=== PATIENT | female | born 1975 | race Caucasian/White ===

== ENCOUNTER 2020-06-11 09:07 | Emergency (ER) | payer MEDICAID ==
[~2020-06-11] VITALS: Ht 157.5 cm; Wt 95.3 kg
[2020-06-11 09:07] VITALS: BP_SYST 153
[2020-06-11] MEDS ORDERED: MORPHINE 4 MG/ML INJ. SYRINGE IM ONE (09:45)
--- NOTE | 2020-06-11 10:30 | NUR ---
Patient to ER bed H1 to gown for evaluation. Side rails up.
--- NOTE | 2020-06-11 10:32 | NUR ---
Pt brought by self, A&Ox4, pt presents to ER with RUQ abd pain, N/V, pt afebrile, skin pink and warm, respirations even and unlabored, cap refill <3, VSS.
--- NOTE | 2020-06-11 10:40 | NUR ---
Dr Stoll evaluating patient at bedside
--- NOTE | 2020-06-11 10:50 | NUR ---
Pt off the unit to radiology
[2020-06-11] MEDS ORDERED: MORPHINE 4 MG/ML INJ. SYRINGE ONE (12:02)
[2020-06-11] MEDS ORDERED: ONDANSETRON HCL 4 MG/2 ML VIAL ONE (12:03)
[2020-06-11 12:05] LABS: BASOPHILS # (AUTO) 0.1 K/uL (0.0-0.2); BASOPHILS % (AUTO) 0.7 % (0.0-2.0); EOSINOPHILS % (AUTO) 0.2 % (0.0-4.0); HEMATOCRIT 40.4 % (36-48); LYMPHOCYTES # (AUTO) 1.6 K/uL (1.0-5.5); LYMPHOCYTES % (AUTO) 17.3 % (20.5-51.5); MEAN CORPUSCULAR HEMOGLOBIN 31 pg (27-31); MEAN CORPUSCULAR HGB CONC 35 % (32-36); MEAN CORPUSCULAR VOLUME 89 fL (79.0-98.0); MONOCYTES # (AUTO) 0.4 K/uL (0.0-1.0); MONOCYTES % (AUTO) 4.1 % (1.7-9.3); NEUTROPHILS # (AUTO) 7.3 K/uL (1.8-7.7); NEUTROPHILS % (AUTO) 77.7 % (40.0-70.0); PLATELET COUNT (AUTO) 270 K/uL (130-430); RED BLOOD CELL COUNT(AUTO) 4.55 MIL/uL (4.2-6.2); RED CELL DISTRIBUTION WIDTH 13.3 % (9.0-15.0); WHITE BLOOD COUNT (AUTO) 9.4 K/uL (4.8-10.8)
[2020-06-11] MEDS: MORPHINE 4 MG/ML INJ. SYRINGE IVP ONE (12:11)
[2020-06-11 12:20] LABS: ANION GAP 11 (5-15); CHLORIDE 105 mmol/L (98-107); CREATININE 1.05 mg/dL (0.55-1.30); GLUCOSE 109 mg/dL (70-99); POTASSIUM 4.2 mmol/L (3.5-5.1); SODIUM SERUM 140 mmol/L (136-145); UREA NITROGEN, BLOOD 5 mg/dL (8-21)
[2020-06-11 12:30] LABS: PROTHROMBIN TIME 10.3 SECS (9.5-12.5)
[2020-06-11 12:40] LABS: ALANINE AMINOTRANSFERASE 89 U/L (12-78); ALBUMIN 4.1 g/dL (3.4-4.8); ASPARTATE AMINOTRANSFERASE 40 U/L (10-37); BILIRUBIN,DIRECT 0.3 mg/dL (0.0-0.3); LIPASE 85 U/L (73-393); TOTAL BILIRUBIN 1.4 mg/dL (0.0-1.0)
[2020-06-11 12:48] LABS: BILIRUBIN,URINE NEGATIVE (NEGATIVE); BLOOD, URINE NEGATIVE (NEGATIVE); CLARITY/URINE CLEAR (CLEAR); COLOR,URINE YELLOW (YELLOW); GLUCOSE,URINE NEGATIVE (NEGATIVE); KETONES,URINE 1+ (NEGATIVE); LEUKOCYTE ESTERASE ,URINE NEGATIVE (NEGATIVE); NITRITE, URINE NEGATIVE (NEGATIVE); PROTEIN URINE NEGATIVE (NEGATIVE); UROBILINOGEN,URINE 0.2 (0.2-1.0)
[2020-06-11 13:18] LABS: GFR AFRICAN AMERICAN 72 mL/min (>90)
--- NOTE | 2020-06-11 13:51 | NUR ---
Pt resting at this time, VSS, respirations even and unlabored
[2020-06-11] MEDS ORDERED: MORPHINE 2 MG/ML INJ. SYRINGE ONE (14:06)
--- NOTE | 2020-06-11 14:15 | NUR ---
Pt medicated with Morphine 2 mg IVP as ordered by Dr Stoll
[2020-06-11] MEDS: fentaNYL CITRATE/PF 100 MCG/2 ML AMP IVP ONE (15:25)
[2020-06-11 16:34] VITALS: BP_SYST 153
--- NOTE | 2020-06-11 16:39 | NUR ---
Patient given written and verbal discharge instructions and verbalizes understanding. ER MD discussed with patient the results and treatment provided. Patient in stable condition. ID arm band removed. Rx of Ibuprofen and Tylenol given. Patient educated on pain management and to follow up with PMD. Pain Scale 2/10. Opportunity for questions provided and answered. Medication side effect fact sheet provided.
== END 2020-06-11 16:34 | disposition home or self-care (01) ==
LOC: SED 09:07
DX: K80.50 Calculus of bile duct without cholangitis or cholecystitis without obstruction (principal)
CPT/HCPCS: 36415; 76700; 80048; 80076; 81003; 83690; 84484; 85025; 85610; 93005; 96374; 96375; 99285; J2270 ×2; J2405; J3010